=== PATIENT | female | born 1950 | race Caucasian/White ===

== ENCOUNTER 2017-08-20 16:07 | Inpatient (IN) | payer OTHER ==
[~2017-08-20] VITALS: Ht 154.9 cm; Wt 60.0 kg
[~2017-08-20 16:07] MED LIST: COL100 PO; IBUPROFEN800 MG PO; LAC PO; MAC100 PO
[2017-08-20 16:15] VITALS: Ht 154.9 cm; Wt 60.0 kg
[2017-08-20 17:03] LABS: UA SPECIFIC GRAVITY 1.015 (1.005-1.035); microscopic required? YES; urine erythrocyte 2+ (NEGATIVE)
[2017-08-20 17:12] LABS: RED CELL DISTRIBUTION WIDTH 14.4 % (11.5-14.5)
[2017-08-20 17:14] LABS: ALKALINE PHOSPHATASE 215 U/L (46-116); ALT/SGPT 76 U/L (14-59); AMYLASE 27 U/L (25-115); AST/SGOT 58 U/L (15-37); BILIRUBIN TOTAL 1.32 mg/dL (0.20-1.00); CALCIUM 8.8 mg/dL (8.5-10.1); CARBON DIOXIDE 28.8 mmol/L (21-32); CHLORIDE SERUM 93 mmol/L (98-107); CHOLESTEROL 158 mg/dL (<200); CREATININE SERUM 0.8 mg/dL (0.6-1.0); GFR1 > 60 mL/min; GLUCOSE SERUM 103 mg/dL (74-106); HDL CHOLESTEROL 35 mg/dL (40-60); LIPASE 75 IU/L (73-393); POTASSIUM SERUM 4.1 mmol/L (3.5-5.1); SODIUM SERUM 125 mmol/L (136-145); TOTAL PROTEIN, SERUM 7.5 g/dL (6.4-8.2)
[2017-08-20 17:16] LABS: ALBUMIN 2.7 g/dL (3.4-5.0)
[2017-08-20 17:26] LABS: PLATELET COUNT 800 x10^3mcL (130-400)
[2017-08-20 17:30] LABS: BAND NEUTROPHIL 3 % (0-10); BASOPHIL 0 % (0-2); METAMYELOCTE 1 % (0-2); MONOCYTE 8 % (0-7); SEGMENTED NEUTROPHILS 86 % (37-75)
[2017-08-20 17:36] LABS: rbc morphology (normal/abnorm) ABNORMAL (NORMAL)
[2017-08-20 19:29] VITALS: BP 101/60
[2017-08-20 19:47] LABS: MAGNESIUM 2.1 mg/dL (1.8-2.4); PHOSPHOROUS 3.1 mg/dL (2.5-4.9)
[2017-08-20 19:47] LABS: AMPHETAMINE QUAL UR NONE DETECTED (NEG <=1000)
[2017-08-20 19:53] LABS: T3 TOTAL 0.72 ng/mL
[2017-08-20 19:57] LABS: FREE T4 1.22 ng/dL (0.76-1.46); FREE THYROXINE INDEX 2.8 ug/dL (1.4-4.5)
[2017-08-20 19:59] LABS: CHOLESTEROL/HDL RATIO 4.2
[2017-08-21 06:21] LABS: BASOPHIL % 0.1 % (0-2)
[2017-08-21 06:42] VITALS: BP 96/57
[2017-08-21 06:43] LABS: CALCIUM 7.7 mg/dL (8.5-10.1); CARBON DIOXIDE 26.4 mmol/L (21-32); CHLORIDE SERUM 105 mmol/L (98-107); CREATININE SERUM 0.6 mg/dL (0.6-1.0); GFR1 > 60 mL/min; GLUCOSE SERUM 112 mg/dL (74-106); MAGNESIUM 2.1 mg/dL (1.8-2.4); PHOSPHOROUS 2.8 mg/dL (2.5-4.9); POTASSIUM SERUM 3.5 mmol/L (3.5-5.1); SODIUM SERUM 136 mmol/L (136-145)
[2017-08-21 07:02] LABS: RED CELL DISTRIBUTION WIDTH 14.7 % (11.5-14.5)
[2017-08-21 07:03] LABS: PLATELET COUNT 652 x10^3mcL (130-400)
[2017-08-21 07:15] LABS: rbc morphology (normal/abnorm) ABNORMAL (NORMAL)
[2017-08-21 09:14] VITALS: BP 89/52
[2017-08-21 09:27] VITALS: BP 95/59
[2017-08-21 14:01] VITALS: BP 111/60
[2017-08-21 14:32] LABS: BASOPHIL % 0.1 % (0-2)
[2017-08-21 16:38] LABS: RED BLOOD CELLS 2.3 M/mm3 (4.10-5.10)
[2017-08-21 16:40] LABS: IRON 9 ug/dL (50-170); TOTAL IRON BINDING CAPACITY 161 ug/dL (250-450)
[2017-08-21 18:10] VITALS: BP 101/57
[2017-08-21 18:51] LABS: rbc morphology (normal/abnorm) ABNORMAL (NORMAL)
[2017-08-21 18:53] LABS: PLATELET COUNT 742 x10^3mcL (130-400)
[2017-08-21 19:33] LABS: PLATELET COUNT 791 x10^3mcL (130-400)
[2017-08-21 19:59] LABS: BAND NEUTROPHIL 3 % (0-10); METAMYELOCTE 7 % (0-2); MONOCYTE 7 % (0-7); MYELOCYTE 2 % (0-2); SEGMENTED NEUTROPHILS 73 % (37-75)
[2017-08-21 20:02] LABS: CALCIUM 7.9 mg/dL (8.5-10.1); CREATININE SERUM 0.8 mg/dL (0.6-1.0); GFR1 > 60 mL/min; GLUCOSE SERUM 125 mg/dL (74-106)
[2017-08-21 20:04] LABS: rbc morphology (normal/abnorm) ABNORMAL (NORMAL)
[2017-08-21 20:15] LABS: CHLORIDE SERUM 103 mmol/L (98-107); POTASSIUM SERUM 3.3 mmol/L (3.5-5.1); SODIUM SERUM 135 mmol/L (136-145)
[2017-08-21 21:49] VITALS: BP 95/54
[2017-08-22] VITALS (9 sets, daily range): BP systolic 102–131; BP diastolic 61–89
[2017-08-22 06:41] LABS: CALCIUM 8.2 mg/dL (8.5-10.1); CARBON DIOXIDE 26.9 mmol/L (21-32); CHLORIDE SERUM 105 mmol/L (98-107); CREATININE SERUM 0.7 mg/dL (0.6-1.0); GFR1 > 60 mL/min; GLUCOSE SERUM 111 mg/dL (74-106); MAGNESIUM 2.2 mg/dL (1.8-2.4); PHOSPHOROUS 2.9 mg/dL (2.5-4.9); POTASSIUM SERUM 3.2 mmol/L (3.5-5.1); SODIUM SERUM 137 mmol/L (136-145)
[2017-08-22 07:00] LABS: PLATELET COUNT 741 x10^3mcL (130-400); RED CELL DISTRIBUTION WIDTH 14.9 % (11.5-14.5)
[2017-08-22 09:28] LABS: BAND NEUTROPHIL 2 % (0-10); BASOPHIL 0 % (0-2); MONOCYTE 2 % (0-7); SEGMENTED NEUTROPHILS 93 % (37-75)
[2017-08-22 09:30] LABS: PLATELET MORPHOLOGY PLATELETS INCREASED; rbc morphology (normal/abnorm) ABNORMAL (NORMAL)
[2017-08-22 16:33] LABS: RED CELL DISTRIBUTION WIDTH 15.1 % (11.5-14.5)
[2017-08-22 16:35] LABS: PLATELET COUNT 802 x10^3mcL (130-400)
[2017-08-22 16:51] LABS: MONOCYTE 8 % (0-7); SEGMENTED NEUTROPHILS 85 % (37-75); rbc morphology (normal/abnorm) ABNORMAL (NORMAL)
[2017-08-22 16:52] LABS: PLATELET MORPHOLOGY PLATELETS INCREASED
[2017-08-23 00:45] LABS: BASOPHIL % 0 % (0-2)
[2017-08-23 00:47] LABS: PLATELET COUNT 771 x10^3mcL (130-400)
[2017-08-23 06:21] LABS: ALKALINE PHOSPHATASE 172 U/L (46-116); ALT/SGPT 47 U/L (14-59); AST/SGOT 33 U/L (15-37); BILIRUBIN DIRECT 0.85 mg/dL (0.0-0.2); BILIRUBIN TOTAL 1.3 mg/dL (0.20-1.00); CALCIUM 8.3 mg/dL (8.5-10.1); CARBON DIOXIDE 24.5 mmol/L (21-32); CHLORIDE SERUM 104 mmol/L (98-107); CREATININE SERUM 0.7 mg/dL (0.6-1.0); GFR1 > 60 mL/min; GLUCOSE SERUM 112 mg/dL (74-106); POTASSIUM SERUM 4.7 mmol/L (3.5-5.1); SODIUM SERUM 136 mmol/L (136-145)
[2017-08-23 06:30] LABS: TOTAL PROTEIN, SERUM 5.4 g/dL (6.4-8.2)
[2017-08-23 06:32] VITALS: BP 109/63
[2017-08-23 07:57] LABS: RED CELL DISTRIBUTION WIDTH 15.4 % (11.5-14.5)
[2017-08-23 07:58] LABS: PLATELET COUNT 778 x10^3mcL (130-400)
[2017-08-23 08:56] VITALS: BP 139/76
[2017-08-23 12:25] LABS: ATYPICAL LYMPH 2 %; BAND NEUTROPHIL 4 % (0-10); BASOPHIL 0 % (0-2); METAMYELOCTE 1 % (0-2); MONOCYTE 3 % (0-7); SEGMENTED NEUTROPHILS 84 % (37-75); rbc morphology (normal/abnorm) ABNORMAL (NORMAL)
[2017-08-23 12:27] LABS: PLATELET MORPHOLOGY PLATELETS INCREASED
[2017-08-23 12:30] VITALS: BP 106/62
[2017-08-23 15:15] LABS: RED CELL DISTRIBUTION WIDTH 15.3 % (11.5-14.5)
[2017-08-23 15:17] LABS: PLATELET COUNT 897 x10^3mcL (130-400)
[2017-08-23 15:37] LABS: BAND NEUTROPHIL 2 % (0-10); BASOPHIL 0 % (0-2); MONOCYTE 9 % (0-7); SEGMENTED NEUTROPHILS 81 % (37-75); rbc morphology (normal/abnorm) ABNORMAL (NORMAL)
[2017-08-23 17:16] VITALS: BP 124/70
[2017-08-23 20:36] VITALS: BP 98/65
[2017-08-23 22:18] LABS: RED CELL DISTRIBUTION WIDTH 15.4 % (11.5-14.5)
[2017-08-23 22:21] LABS: PLATELET COUNT 837 x10^3mcL (130-400)
[2017-08-23 22:31] LABS: BAND NEUTROPHIL 2 % (0-10); BASOPHIL 0 % (0-2); MONOCYTE 8 % (0-7); SEGMENTED NEUTROPHILS 77 % (37-75); rbc morphology (normal/abnorm) ABNORMAL (NORMAL)
[2017-08-24 05:40] VITALS: BP 126/76
[2017-08-24 06:44] LABS: BASOPHIL % 0.3 % (0-2)
[2017-08-24 06:52] LABS: PLATELET COUNT 799 x10^3mcL (130-400); RED CELL DISTRIBUTION WIDTH 15.8 % (11.5-14.5)
[2017-08-24 09:20] VITALS: BP 115/65
[2017-08-24 13:10] VITALS: BP 132/85
[2017-08-24 14:27] LABS: CALCIUM 8.4 mg/dL (8.5-10.1); CARBON DIOXIDE 26.8 mmol/L (21-32); CHLORIDE SERUM 103 mmol/L (98-107); CREATININE SERUM 0.8 mg/dL (0.6-1.0); GFR1 > 60 mL/min; GLUCOSE SERUM 129 mg/dL (74-106); SODIUM SERUM 137 mmol/L (136-145)
[2017-08-24 14:29] LABS: POTASSIUM SERUM 2.7 mmol/L (3.5-5.1)
[2017-08-24 18:00] VITALS: BP 122/73
[2017-08-24 21:13] VITALS: BP 121/71
[2017-08-25 05:50] VITALS: BP 122/78
[2017-08-25 06:34] LABS: BASOPHIL % 0.1 % (0-2)
[2017-08-25 06:39] LABS: CALCIUM 8.3 mg/dL (8.5-10.1); CARBON DIOXIDE 27.9 mmol/L (21-32); CHLORIDE SERUM 104 mmol/L (98-107); CREATININE SERUM 0.8 mg/dL (0.6-1.0); GFR1 > 60 mL/min; GLUCOSE SERUM 104 mg/dL (74-106); POTASSIUM SERUM 3.8 mmol/L (3.5-5.1); SODIUM SERUM 138 mmol/L (136-145)
[2017-08-25 07:09] LABS: RED CELL DISTRIBUTION WIDTH 16.1 % (11.5-14.5)
[2017-08-25 07:10] LABS: PLATELET COUNT 850 x10^3mcL (130-400)
[2017-08-25 09:47] VITALS: BP 133/72
[2017-08-25 14:01] VITALS: BP 126/78
[2017-08-25 18:13] VITALS: BP 151/87
[2017-08-25 20:42] VITALS: BP 122/69
[2017-08-26 05:28] VITALS: BP 130/79
[2017-08-26 06:47] LABS: CALCIUM 8.3 mg/dL (8.5-10.1); CARBON DIOXIDE 22.8 mmol/L (21-32); CHLORIDE SERUM 102 mmol/L (98-107); CREATININE SERUM 0.6 mg/dL (0.6-1.0); GFR1 > 60 mL/min; GLUCOSE SERUM 96 mg/dL (74-106); PHOSPHOROUS 3.5 mg/dL (2.5-4.9); POTASSIUM SERUM 3.4 mmol/L (3.5-5.1); SODIUM SERUM 135 mmol/L (136-145)
[2017-08-26 07:54] LABS: BASOPHIL % 0.1 % (0-2)
[2017-08-26 07:57] LABS: RED CELL DISTRIBUTION WIDTH 15.8 % (11.5-14.5)
[2017-08-26 07:59] LABS: PLATELET COUNT 829 x10^3mcL (130-400)
[2017-08-26 08:48] VITALS: BP 109/61
[2017-08-26 08:50] VITALS: BP 119/79
[2017-08-26 13:14] VITALS: BP 118/67
[2017-08-26 16:24] VITALS: BP 119/64
[2017-08-26 20:39] VITALS: BP 127/74
[2017-08-27 05:48] VITALS: BP 115/61
[2017-08-27 06:12] LABS: BASOPHIL % 0.3 % (0-2)
[2017-08-27 06:44] LABS: CALCIUM 8.2 mg/dL (8.5-10.1); CHLORIDE SERUM 103 mmol/L (98-107); CREATININE SERUM 0.7 mg/dL (0.6-1.0); GFR1 > 60 mL/min; GLUCOSE SERUM 102 mg/dL (74-106); POTASSIUM SERUM 3.7 mmol/L (3.5-5.1); SODIUM SERUM 136 mmol/L (136-145)
[2017-08-27 07:48] LABS: RED CELL DISTRIBUTION WIDTH 16.1 % (11.5-14.5)
[2017-08-27 07:49] LABS: PLATELET COUNT 757 x10^3mcL (130-400)
[2017-08-27 09:49] VITALS: BP 145/78
[2017-08-27 12:15] VITALS: BP 118/74
[2017-08-27 20:55] VITALS: BP 164/97
[2017-08-27 23:16] VITALS: BP 124/64
[2017-08-28 05:31] VITALS: BP 10/62
[2017-08-28 06:09] LABS: BASOPHIL % 0.4 % (0-2)
[2017-08-28 07:02] LABS: CALCIUM 8.2 mg/dL (8.5-10.1); CARBON DIOXIDE 24.6 mmol/L (21-32); CHLORIDE SERUM 103 mmol/L (98-107); CREATININE SERUM 0.6 mg/dL (0.6-1.0); GFR1 > 60 mL/min; GLUCOSE SERUM 96 mg/dL (74-106); POTASSIUM SERUM 3.6 mmol/L (3.5-5.1); SODIUM SERUM 136 mmol/L (136-145)
[2017-08-28 07:58] LABS: PLATELET COUNT 723 x10^3mcL (130-400); RED CELL DISTRIBUTION WIDTH 16.6 % (11.5-14.5)
[2017-08-28 09:24] VITALS: BP 121/74
[2017-08-28 17:05] VITALS: BP 144/82
[2017-08-28 20:43] VITALS: BP 140/76
[2017-08-29 05:04] VITALS: BP 120/85
[2017-08-29 06:34] LABS: CALCIUM 8.4 mg/dL (8.5-10.1); CARBON DIOXIDE 23.8 mmol/L (21-32); CHLORIDE SERUM 103 mmol/L (98-107); CREATININE SERUM 0.8 mg/dL (0.6-1.0); GFR1 > 60 mL/min; GLUCOSE SERUM 102 mg/dL (74-106); POTASSIUM SERUM 3.7 mmol/L (3.5-5.1); SODIUM SERUM 135 mmol/L (136-145)
[2017-08-29 07:00] LABS: RED CELL DISTRIBUTION WIDTH 16.4 % (11.5-14.5)
[2017-08-29 07:02] LABS: PLATELET COUNT 825 x10^3mcL (130-400)
[2017-08-29 07:50] LABS: BAND NEUTROPHIL 1 % (0-10); BASOPHIL 0 % (0-2); MONOCYTE 14 % (0-7); SEGMENTED NEUTROPHILS 70 % (37-75)
[2017-08-29 07:52] LABS: PLATELET MORPHOLOGY PLATELETS INCREASED; rbc morphology (normal/abnorm) ABNORMAL (NORMAL)
[2017-08-29 08:52] VITALS: BP 119/71
[2017-08-29 20:20] VITALS: BP 134/73
[2017-08-30 05:03] VITALS: BP 142/83
[2017-08-30 09:10] VITALS: BP 149/79
[2017-08-30 17:18] VITALS: BP 131/89
[2017-08-30 21:18] VITALS: BP 137/74
[2017-08-31 05:39] VITALS: BP 129/60
[2017-08-31 09:30] VITALS: BP 144/91
[2017-08-31 10:31] LABS: BASOPHIL % 0.1 % (0-2)
[2017-08-31 10:34] LABS: RED CELL DISTRIBUTION WIDTH 16.6 % (11.5-14.5)
[2017-08-31 10:38] LABS: PLATELET COUNT 989 x10^3mcL (130-400)
[2017-08-31 10:57] LABS: CALCIUM 8.7 mg/dL (8.5-10.1); CHLORIDE SERUM 102 mmol/L (98-107); CREATININE SERUM 0.6 mg/dL (0.6-1.0); GFR1 > 60 mL/min; GLUCOSE SERUM 103 mg/dL (74-106); POTASSIUM SERUM 3.9 mmol/L (3.5-5.1); SODIUM SERUM 135 mmol/L (136-145)
[2017-08-31 11:05] LABS: BILIRUBIN DIRECT 0.78 mg/dL (0.0-0.2); BILIRUBIN TOTAL 1.23 mg/dL (0.20-1.00); TOTAL PROTEIN, SERUM 6.3 g/dL (6.4-8.2)
[2017-08-31 11:07] LABS: ALBUMIN 2.2 g/dL (3.4-5.0)
[2017-08-31 14:28] VITALS: BP 144/91
[2017-08-31] MEDS ORDERED: COL100 PO (15:37)
[2017-08-31] MEDS ORDERED: IBUPROFEN800 MG PO (15:37)
[2017-08-31] MEDS ORDERED: ROB750 PO (15:42)
== END 2017-08-31 17:20 | disposition home or self-care (01) | DRG 441 ==
LOC: ED 16:07 → DU 18:27 → MU 18:27 → DU 19:36 → MU 08-27 09:52
PROVIDERS: Emergency Medicine; Family Medicine; Family Medicine Sports Medicine; Internal Medicine Gastroenterology; Surgery
PROC: 30233N1 Transfusion of Nonautologous Red Blood Cells into Peripheral Vein, Percutaneous Approach (ICD-10-PCS; principal; 2017-08-22)
DX: K76.89 Other specified diseases of liver (principal); N17.0 Acute kidney failure with tubular necrosis; E43 Unspecified severe protein-calorie malnutrition; E87.1 Hypo-osmolality and hyponatremia; N39.0 Urinary tract infection, site not specified; R31.9 Hematuria, unspecified; D50.0 Iron deficiency anemia secondary to blood loss (chronic); I95.89 Other hypotension; K57.30 Diverticulosis of large intestine without perforation or abscess without bleeding; E78.5 Hyperlipidemia, unspecified; Z68.25 Body mass index [BMI] 25.0-25.9, adult; Z90.49 Acquired absence of other specified parts of digestive tract
CPT/HCPCS: 76770; 83880; 84439; 85060; A9547; C9113; J0295; J0696; J1644; J1885; J2270; J2405; J2543; J2916; J3010; J3370; J3480; J3490; J7030; J7040; J7050; P9016; Q0092; Q9967

== ENCOUNTER → 2017-09-06 | Outpatient (CLI) | payer OTHER ==
[~2017-09-06] MED LIST changes: +ROB750 PO
== END | disposition home or self-care (01) ==
LOC: US 08:44
PROC: BW40ZZZ Ultrasonography of Abdomen (ICD-10-PCS; principal; 2017-09-06)
DX: D47.3 Essential (hemorrhagic) thrombocythemia (principal)

== ENCOUNTER → 2017-09-15 | Outpatient (CLI) | payer OTHER | END | disposition home or self-care (01) | LOC: US 08:47 | PROC: BW40ZZZ Ultrasonography of Abdomen (ICD-10-PCS; principal; 2017-09-15) | DX: S30.1XXA Contusion of abdominal wall, initial encounter (principal); X58.XXXA Exposure to other specified factors, initial encounter; Y92.9 Unspecified place or not applicable ==